=== PATIENT | male | born 1950 | race Caucasian/White ===

== ENCOUNTER → 2016-11-05 | Day surgery (SDC) | payer MEDICARE, OTHER ==
[~2016-11-05] VITALS: Ht 185.4 cm; Wt 83.7 kg
[~2016-11-05] MED LIST: COLACE100 MG PO; ENALAPRIL-HCTZ1 EACH PO; FERROUS SULFATE PO; FLOMAX0.4 MG PO; GLUCOTROL XL10 MG PO; LEVAQUIN500 MG PO; MAGNESIUM250 MG PO; NORCO 5-325 TA1 EACH PO; VITAMIN B122500 MCG PO
--- NOTE | ~2016-11-05 | OR ---
PATIENT'S NAME: DELMI HALL [facility] AGE: 66 Y [address] ROOM: [place] [address] [place] [facility] [place] DATE: 11/05/2016 OR/Procedure Report DISCHARGE DATE: FAMILY PHYSICIAN: Rafita Ly MD ATTENDING PHYSICIAN: AARON ZAVALA SURGEON: Aaron Zavala MD PACKAGE CAR DRIVER: None. DATE OF PROCEDURE: 11/05/2016 PREOPERATIVE DIAGNOSES: 1. Left ureteral calculus. 2. Left lower pole renal calculus. POSTOPERATIVE DIAGNOSES: 1. Left ureteral calculus. 2. Left lower pole renal calculus. OPERATIVE PROCEDURES: 1. Left ureteroscopy with laser lithotripsy. 2. Left ureteroscopic stone extraction. 3. Cystoscopy with left retrograde ureteropyelogram. 4. Left extracorporeal shockwave lithotripsy. ANESTHESIA ADMINISTERED: General. INDICATIONS FOR PROCEDURE: The patient is a pleasant 66-year-old male. He was recently noted to have a 1.2 cm proximal left ureteral calculus as well as a lower pole renal stone. The patient was explained the risks, benefits, indications, and alternatives to above procedure; wished to proceed; and consented freely. DESCRIPTION OF OPERATION: The patient was brought back to the operating room. He was placed on the OR table in the supine position. A surgical time-out was called where patient identification, surgical site, and procedure was then verified. We also did verify the patient received an IV Levaquin antibiotic within an hour of beginning the procedure. The patient underwent successful administration of general endotracheal anesthesia. The patient was then moved and placed in a low lithotomy position where his genital area was then prepped and draped in the usual sterile fashion. I then carefully advanced the rigid cystoscope easily into the patient's urinary bladder. His anterior urethra was within normal limits. His posterior urethra was notable for some moderate bilobar hyperplasia of the prostate. Upon entering to his bladder, full clark cystoscopy was performed. His ureteral orifices were noted to be in their orthotopic location. There was no evidence of any bladder tumors, cellules, or diverticula. He did have some mild bladder trabeculation. I then PATIENT'S NAME: DELMI HALL [facility] AGE: 66 Y [address] ROOM: [place] [address] LOC[place]: [facility] [place] DATE: 11/05/2016 OR/Procedure Report DISCHARGE DATE: FAMILY PHYSICIAN: Rafita Ly MD ATTENDING PHYSICIAN: AARON ZAVALA carefully advanced a guidewire, cannulating his left ureteral orifice, and was meeting some resistance at his distal ureter consistent with a probable obstructing stone. Of note, the stone did appear to be somewhat more radiolucent consistent with a possible uric acid stone. I then emptied the patient's bladder and then readvanced with a semi-rigid ureteroscope and utilized 2 wires to carefully navigate into his left distal ureter. I was ultimately able to successfully pass the wire and pass the stone up to the patient's left renal collecting system. I then came across the stone at his distal ureter, which appeared too large to extract without fragmentation. I then used a 600 micron holmium laser fiber to carefully fragment the stone into smaller fragments. I then used the [employer] stone basket to carefully entrap the fragments and these were sent for stone analysis. Once I was complete, there was no evidence of any large residual fragments remaining and the ureter was free of any injury. Then, over the remaining wire, I advanced a 4.8-[place] multi-length ureteral stent, deploying it, noting a good curl fluoroscopically in the patient's left renal collecting system as well as a good curl fluoroscopically and visually in the patient's bladder. I then advanced a 5-[place] open-ended catheter along the stent and into his distal left ureter to aid with a left retrograde ureteropyelogram to help delineate his anatomy for treating his lower pole renal calculus. The patient was then taken out of the lithotomy position where he was then transferred over to the recovery bed and transported to the lithotripsy treatment bed. I then performed a left retrograde ureteropyelogram to delineate his anatomy to help target the lower pole calculus. The stone was brought into focal point and we began performing shockwave lithotripsy starting at 14 kilovolts and working up sequentially to 24 kilovolts in energy. Approximately 2200 shocks were delivered to the stone and we had nice fragmentation by fluoroscopic monitoring. I then removed the open-ended ureteral catheter leaving the stent in place. The patient did tolerate the procedure well. The patient was then awoken from general anesthesia, extubated, and transferred to recovery bed and transported to the recovery room in good condition. COMPLICATIONS: None. DRAINS: Indwelling 4.8[place] multi-length left ureteral stent. SPECIMENS: Stone for stone analysis. FOLLOWUP PLAN: We will plan to have the patient back for followup in [facility]rology Clinic in [place] at [facility] on November 26, 2016, for cystoscopy and stent removal. We will also plan for him to undergo a CT scan of his abdomen and pelvis given his history of probable uric acid stones. Ultimately, he will also likely need a 24-hour urinalysis and metabolic workup. PATIENT'S NAME: DELMI HALL [facility] AGE: 66 Y [address] ROOM: [place] [address] LOCATION: [facility] [place] DATE: 11/05/2016 OR/Procedure Report DISCHARGE DATE: FAMILY PHYSICIAN: Rafita Ly MD ATTENDING PHYSICIAN: AARON ZAVALA AARON ZAVALA MD GP/modl /[id number] CC: Rafita Ly MD d: 11/06/16 0148 t: 11/06/16 0940, OPERATIVE SUMMARY
[2016-11-05 13:59] LABS: BASOPHIL % 0.4 %; EOSINOPHIL # 0.1 K/uL (0.0-0.5); EOSINOPHIL % 1.6 %; HEMATOCRIT 46.8 % (37.0-53.0); HEMOGLOBIN 16.5 g/dL (11.0-16.0); IMMATURE GRANULOCYTE % 0.4 %; LYMPHOCYTE # 2.1 K/uL (0.8-4.0); LYMPHOCYTE % 30.5 %; MCHC 35.3 gm/dL (32.0-36.5); MCV 90.9 fl (83.0-98.0); MONOCYTE # 0.5 K/uL (0.0-1.0); MONOCYTE % 7.9 %; MPV 9.9 fl (9.4-12.4); NEUTROPHIL % 59.2 %; NRBC % 0 /100WBC (0-0.00); PLATELET COUNT 217 K/uL (150-450); RBC 5.15 M/uL (3.50-5.50); RDW-CV 13.3 % (11.9-14.6); WBC 6.8 K/uL (4.0-11.0)
[2016-11-05 14:15] LABS: ALBUMIN 3.9 gm/dL (3.5-5.0); ANION GAP 11.3 (10.0-19.0); CALCIUM 9.2 mg/dL (8.5-10.5); CREATININE 1.4 mg/dL (0.6-1.3); POTASSIUM 4.3 mMol/L (3.7-5.1); TOTAL BILIRUBIN 1.2 mg/dL (0.0-1.5); TOTAL PROTEIN 8.1 g/dL (6.0-8.4)
== END | disposition disaster alternative care site (69) ==
LOC: GPOC 11-01 09:00 → GSDC 13:16
PROVIDERS: Urology
PROC: 0TF78ZZ Fragmentation in Left Ureter, Via Natural or Artificial Opening Endoscopic (ICD-10-PCS; principal; 2016-11-05)
PROC: 0T778DZ Dilation of Left Ureter with Intraluminal Device, Via Natural or Artificial Opening Endoscopic (ICD-10-PCS; 2016-11-05)
PROC: 0TF4XZZ Fragmentation in Left Kidney Pelvis, External Approach (ICD-10-PCS; 2016-11-05)
DX: N13.2 Hydronephrosis with renal and ureteral calculous obstruction (principal); I10 Essential (primary) hypertension; E11.9 Type 2 diabetes mellitus without complications; Z87.19 Personal history of other diseases of the digestive system; Z98.890 Other specified postprocedural states; Z79.84 Long term (current) use of oral hypoglycemic drugs; Z79.899 Other long term (current) drug therapy
CPT/HCPCS: C1769; C2617; J1956; J2001; J2250; J2405; J7030